=== PATIENT | male | born 1965 | race Two or more races ===

== ENCOUNTER 2022-03-24 18:47 | Emergency (ER) | payer OTHER ==
[~2022-03-24] VITALS: Ht 162.6 cm; Wt 71.7 kg
[2022-03-24] MEDS ORDERED: LISINOPRIL40 MG (19:25)
[2022-03-24] MEDS ORDERED: DICLOFENAC SODI75 MG PO (21:36)
== END 2022-03-24 21:42 | disposition home or self-care (01) ==
LOC: ER 18:47
DX: R10.11 Right upper quadrant pain (principal); K76.0 Fatty (change of) liver, not elsewhere classified; I10 Essential (primary) hypertension